=== PATIENT | female | born 1955 | race African-American/Black ===

== ENCOUNTER 2023-03-01 07:11 | Emergency (ER) | payer MEDICARE, MEDICAID ==
[~2023-03-01] VITALS: Ht 160 cm; Wt 68.0 kg
[2023-03-01 07:26] VITALS: BP 160/131; TEMP 98.4
[2023-03-01] MEDS ORDERED: IPRATROPIUM BROMIDE (0.02%) 0.5MG/2.5ML NEB HHN STA (08:44)
[2023-03-01] MEDS ORDERED: PREDNISONE 20MG TABLET PO STA (08:44)
[2023-03-01] MEDS ORDERED: IPRATROPIUM BROMIDE (0.02%) 0.5MG/2.5ML NEB ONE (10:24)
[2023-03-01 10:25] VITALS: PULSE 118; RESP 24; O2SAT 96
[2023-03-01] MEDS: ALBUTEROL (0.083%) 2.5MG/3ML NEB HHN SCH (10:25)
[2023-03-01] MEDS ORDERED: ALBUTEROL (0.083%) 2.5MG/3ML NEB HHN ONE (11:30)
[2023-03-01] MEDS ORDERED: PREDNISONE 20MG TABLET PO NR (12:00)
== END 2023-03-01 12:38 | disposition left against medical advice (07) ==
LOC: ER 07:11
DX: J45.901 Unspecified asthma with (acute) exacerbation (principal); I10 Essential (primary) hypertension; Z88.5 Allergy status to narcotic agent; Z88.6 Allergy status to analgesic agent; Z90.710 Acquired absence of both cervix and uterus
CPT/HCPCS: 71045; 94640; 93005; 99283; J7512; Z7610 ×2